=== PATIENT | female | born 1965 | race Caucasian/White ===

== ENCOUNTER 2016-09-14 07:19 | Emergency (ER) | payer OTHER ==
[2016-09-14 07:26] VITALS: BP 144/77
[2016-09-14] MEDS ORDERED: XYLOCAINE-MPF 1% INJ ONE (08:11)
[2016-09-14] MEDS ORDERED: ROCEPHIN IM ONE (08:11)
[2016-09-14] MEDS ORDERED: DECADRON IM ONE (08:11)
[2016-09-14] MEDS ORDERED: ALBUTEROL NEB INH ONE (08:11)
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
--- NOTE | 2016-09-14 08:39 | Diag Imaging Result Document ---
PROCEDURE NAME: CHEST-2 VIEWS - 09/14/2016 FRONTAL AND LATERAL CHEST, TWO VIEWS: COMPARISON: Compared to 07/30/2016. FINDINGS: The lungs are well expanded. The heart is not enlarged. The vessels are not distended. There are no infiltrates. No pleural effusions. IMPRESSION: No pneumonia.
== END 2016-09-14 09:21 | disposition home or self-care (01) ==
LOC: ED 07:19
DX: J06.9 Acute upper respiratory infection, unspecified (principal); R05 Cough; R07.9 Chest pain, unspecified; R50.9 Fever, unspecified; R09.81 Nasal congestion; R07.1 Chest pain on breathing; R06.02 Shortness of breath; J02.9 Acute pharyngitis, unspecified; I10 Essential (primary) hypertension; R51 Headache; G89.29 Other chronic pain; F17.210 Nicotine dependence, cigarettes, uncomplicated; Z71.6 Tobacco abuse counseling; Z79.899 Other long term (current) drug therapy
CPT/HCPCS: 71020; 87081; 87430; 87804; 94640; 96372; J0696

== ENCOUNTER 2016-11-10 12:54 | Emergency (ER) ==
--- NOTE | 2016-11-10 13:39 | PROVIDER DOCUMENTATION ---
HPI-EENT General - General Chief Complaint: Sore Throat Stated Complaint: SORE THROAT,RT EAR PAIN Time Seen by Provider: 11/10/16 13:15 Source: patient Allergies/Adverse Reactions: Patient Allergies Allergy/AdvReac Type Severity Reaction Status Date / Time tramadol Allergy Intermediate SWELLING, Verified 11/10/16 13:16 HIVES Home Medications: Home Medication List Medication Instructions Recorded Confirmed Last Taken Type Amlodipine Besylate [Norvasc] 5 mg PO DAILY 06/25/15 11/10/16 11/10/16 01:00 History Albuterol Sulfate [Albuterol 18 gm IH 3-4XDAY PRN PRN #1 09/14/16 11/10/16 Unknown Rx Sulfate Hfa] hfa.[email or web address] Acetaminophen with Codeine 1 each PO Q6H PRN PRN #14 tablet 10/29/16 11/10/16 Unknown Rx [Tylenol with Codeine #3 Tablet] Guaifenesin/Codeine [Robitussin-AC] 10 ml PO Q4H PRN PRN #4 oz 10/29/16 Unknown Rx Lisinopril 10 mg PO DAILY 10/29/16 11/10/16 11/10/16 01:00 History Amoxicillin/Pot Clavulanate 875 mg PO Q12HR #14 tablet 11/10/16 Unknown Rx [Augmentin] Diphenhyramine/Al&mg Oh/Lido [Mbx 15 ml MT 4XDAY PRN PRN #1 bottle 11/10/16 Unknown Rx Solution] Fluticasone 50 Mcg Nasal [place] 1 spray DANNY DAILY #1 bottle 11/10/16 Unknown Rx [Flonase] - History of Present Illness-EENT General Nature of Presenting Problem: 51 y/o WF c/o sore throat, R ear pain x 2-3 days. Pt states she was given cough syrup x 10 days ago for a cough at [facility], but states that it has resolved. Reports lymph swelling and dysphagia. Denies any N/V/D/C. Review of Systems - Adult - REVIEW OF SYSTEMS - ADULT Constitutional: reports: no symptoms reported. denies: chills, fever Eyes: reports: no symptoms reported. denies: blurred vision, double vision Ears, Nose, Mouth & Throat: reports: see HPI, ear pain, throat pain. denies: ear discharge, nose pain Cardiovascular: reports: no symptoms reported. denies: chest pain, palpitations Respiratory: reports: see HPI. denies: cough, shortness of breath Gastrointestinal: reports: no symptoms reported. denies: abdominal pain, diarrhea, nausea, vomiting Genitourinary: reports: no symptoms reported. denies: dysuria, frequency Musculoskeletal: reports: no symptoms reported. denies: joint pain, joint swelling Integumentary: reports: no symptoms reported. denies: nail changes, rash Neurological: reports: no symptoms reported. denies: numbness, paresthesia Psychiatric: reports: no symptoms reported Endocrine: reports: no symptoms reported. denies: cold intolerance, heat intolerance Hematologic/Lymphatic: reports: no symptoms reported. denies: easy bruising, prolonged bleeding Allergic/Immunologic: reports: no symptoms reported All Other Systems: Reviewed and Negative Past History - Adult - PAST MEDICAL HISTORY-ADULT Review of Records: reports: Nursing Assessment Review, Medications Reviewed Major Childhood Illnesses: reports: denies history Cardiovascular: reports: HTN Respiratory: reports: denies history Gastrointestinal: reports: denies history Obstetrical/Gynecological: reports: denies history Genitourinary: reports: denies history Musculoskeletal: reports: chronic pain Neurological: reports: headaches/migraines Endocrine/Immune: reports: denies history Other Conditions: reports: denies history - PRIOR SURGERIES/PROCEDURES Surgical/Procedure History: reports: BTL, hernia repair - IMMUNIZATION STATUS Childhood Immunizations: UTD, See Nurse Assessment Flu Vaccine: See Nurse Assessment - FAMILY HISTORY Family History: reviewed, not pertinent - SOCIAL HISTORY Smoking: denies Physical Exam- EENT - Physical Exam EENT Initial Vital Signs Reviewed: Yes General Appearance: alert, mild distress Eye Exam: bilateral eye: normal inspection Ear Exam: right ear: TM red, left ear: other (tube present), bilateral ear: auricle normal, canal normal Nasal Exam: normal inspection, sinus tenderness (maxillary, bilat) Throat Exam: normal mouth inspection, tonsillar exudate, tonsillar swelling. negative: pharynx normal (erythema) Neck: supple, normal inspection, lymphadenopathy (ant. cervical) Respiratory: lungs clear, normal breath sounds. negative: crackles, rales, rhonchi, stridor, wheezing Cardiovascular: regular rate, rhythm. negative: bradycardia, tachycardia Lymphatic: cervical node tenderness Extremity: normal gait Integumentary: normal color, normal turgor, warm/dry Neurologic: negative: aphasia Psych/Mental Status: normal mood/affect, normal thought content, normal thought process, oriented x 3 Progress - PLAN OF CARE/RESULTS Progress/Plan/Lab Results: Orders Category Date Time Status DIRECT STREP Stat Lab 11/10/16 13:11 Completed Flu Swab [INFLUENZA SCREEN A/B] Stat Lab 11/10/16 13:11 Completed Vital Signs Temp Pulse Resp BP Pulse Ox 11/10/16 14:23 97.8 F 70 18 135/80 100 11/10/16 13:10 97.8 F 75 20 137/74 100 tramadol Allergy (Intermediate, Verified 11/10/16 13:16) SWELLING, HIVES Amlodipine Besylate [Norvasc] 5 mg PO DAILY 06/25/15 Albuterol Sulfate [Albuterol Sulfate Hfa] 18 gm IH 3-4XDAY PRN PRN #1 hfa.aer.ad 09/14/16 Acetaminophen with Codeine [Tylenol with Codeine #3 Tablet] 1 each PO Q6H PRN PRN #14 tablet 10/29/16 Guaifenesin/Codeine [Robitussin-AC] 10 ml PO Q4H PRN PRN #4 oz 10/29/16 Lisinopril 10 mg PO DAILY 10/29/16 Amoxicillin/Pot Clavulanate [Augmentin] 875 mg PO Q12HR #14 tablet 11/10/16 Diphenhyramine/Al&mg Oh/Lido [Mbx Solution] 15 ml MT 4XDAY PRN PRN #1 bottle 04/21 Fluticasone 50 Mcg Nasal [place] [Flonase] 1 spray DANNY DAILY #1 bottle 11/10/16 Discussed results and medication use with pt. Departure - Departure Time of Disposition Order: 14:13 DIAGNOSIS: Sinusitis Qualifiers: Sinusitis location: maxillary Chronicity: unspecified Qualified Code(s): J32.0 - Chronic maxillary sinusitis Otitis Qualifiers: Laterality: bilateral Qualified Code(s): H66.93 - Otitis media, unspecified, bilateral Pharyngitis Qualifiers: Pharyngitis/tonsillitis etiology: unspecified etiology Qualified Code(s): J02.9 - Acute pharyngitis, unspecified Disposition: HOME 01 Certified Medical Emergency: Emergent Condition: Stable Additional Instructions: Take medications as directed. Follow up with PCP for further management. Drink plenty of fluids. Tylenol or motrin as needed for fever. Prescriptions: Amoxicillin/Pot Clavulanate [Augmentin] 875 mg PO Q12HR #14 tablet Fluticasone 50 Mcg Nasal [place] [Flonase] 1 spray DANNY DAILY #1 bottle Diphenhyramine/Al&mg Oh/Lido [Mbx Solution] 15 ml MT 4XDAY PRN PRN #1 bottle PRN Reason: Pain Referrals: Efren Harvey MD [Primary Care Provider] - Forms: Return to School/Parent Work Instructions: Otitis Media, Adult, [id number], Sinusitis, [id number], Pharyngitis, [id number] Attestation - Physician/ EFRAIN Attestation Patient care was provided by Advanced Practice Provider:: Yes Advanced Practice Provider:: Michelle Porter Advanced Practice Provider documentation review:: The Mid-level provider documentation, treatment plan and medical decision making was reviewed by the physician who agrees with all treatment and medical decision making by the MLP.
[2016-11-10 14:24] VITALS: BP 135/80
== END 2016-11-10 14:26 | disposition home or self-care (01) ==
LOC: ED 12:54
DX: J32.0 Chronic maxillary sinusitis (principal); H66.93 Otitis media, unspecified, bilateral; J02.9 Acute pharyngitis, unspecified; H92.01 Otalgia, right ear; R59.0 Localized enlarged lymph nodes; R13.10 Dysphagia, unspecified; J34.89 Other specified disorders of nose and nasal sinuses; R22.1 Localized swelling, mass and lump, neck; I10 Essential (primary) hypertension; G89.29 Other chronic pain; Z79.899 Other long term (current) drug therapy
CPT/HCPCS: 87081; 87430; 87804